=== PATIENT | female | born 1995 | race Caucasian/White ===

== ENCOUNTER 2016-09-08 17:53 | Emergency (ER) | payer BC ==
[2016-09-08 18:33] VITALS: BP 120/80
--- NOTE | 2016-09-08 20:24 | ED ---
Laceration/Wound HPI - HPI Summary HPI Summary: 21F presents with right foot laceration s/p stepping on sharp object today s/p walking bare foot in crow. She denies any foreign body in the wound. She has full ROM of her foot. She tetanus is up to date. bleeding is controlled upon arrival. pain is 8/10. - History of Current Complaint Stated Complaint: RIGHT FOOT LAC Time Seen by Provider: 09/08/16 18:25 Pain Intensity: 8 - Allergy/Home Medications Allergies/Adverse Reactions: Allergies Allergy/AdvReac Type Severity Reaction Status Date / Time No Known Allergies Allergy Verified 09/08/16 17:58 PMH/Surg Hx/FS Hx/Imm Hx Endocrine/Hematology History: Denies: Hx Anticoagulant Therapy Respiratory History: Denies: Hx Asthma Infectious Disease History: Denies: Traveled Outside the [place] in Last 30 Days - Family History Known Family History: Negative: Cardiac Disease - Social History Alcohol Use: Occasionally Substance Use Type: Reports: None Smoking Status (MU): Never Smoked Tobacco Review of Systems Negative: Fever Negative: Chest Pain Negative: Shortness Of Breath Positive: Other - laceration right foot All Other Systems Reviewed And Are Negative: Yes Physical Exam Triage Information Reviewed: Yes Vital Signs On Initial Exam: Initial Vitals Temp Pulse Resp BP Pulse Ox 98.1 F 85 18 113/72 99 09/08/16 17:56 09/08/16 17:56 09/08/16 17:56 09/08/16 17:56 09/08/16 17:56 Vital Signs Reviewed: Yes Appearance: Positive: Well-Appearing Skin: Positive: Warm, Dry, Other - 3cm laceration over middorum of foot Head/Face: Positive: Normal Head/Face Inspection Eyes: Positive: Normal, Conjunctiva Clear Respiratory/Lung Sounds: Positive: Clear to Auscultation, Breath Sounds Present Cardiovascular: Positive: Normal, RRR Procedures - Laceration/Wound Repair 1 Location: Other - right dorsum of foot Description: Linear Anesthesia: Local, 1.0% Length, Depth and Shape: 3cm Betadine Prep?: Yes Irrigated w/ Saline (ccs): 200 Laceration/Wound Explored: no foreign body removed Closure: Single Layer Suture Type: Prolene - 4-0 Number of Sutures: 4 Layer Closure?: No Sterile Dressing Applied?: No Diagnostics - Vital Signs Vital Signs Temp Pulse Resp BP Pulse Ox 09/08/16 18:27 99.7 F 75 16 120/80 99 09/08/16 17:56 98.1 F 85 18 113/72 99 - Laboratory Lab Statement: Any lab studies that have been ordered have been reviewed, and results considered in the medical decision making process. Laceration Repair Course/Dx - Course Course Of Treatment: 21F presents with right foot laceration s/p stepping on something on crow. denies any foreign body in wound. placed 4 sutures. tetanus up to date. patient understands and agrees with plan - Differential Dx Differental Diagnoses: Abrasion, Avulsion, Laceration - Clinical Impression Provider Diagnoses: Laceration of right foot Discharge - Discharge Plan Condition: Good Disposition: HOME Patient Education Materials: Care For Your Stitches (ED) Referrals: [facility] [Primary Care Provider] - Additional Instructions: Take Tylenol or ibuprofen for pain every 6 hours as needed Keep area clean and dry for 48 hours Do not soak area Return to ED or primary in 10-14 days to have sutures removed Return to ED if develop signs of infection such as fever, spreading redness, or pus.
== END 2016-09-08 20:32 | disposition home or self-care (01) ==
LOC: ED 17:53
DX: S91.311A Laceration without foreign body, right foot, initial encounter (principal); W45.8XXA Other foreign body or object entering through skin, initial encounter; Y93.9 Activity, unspecified; Y92.9 Unspecified place or not applicable; Y99.9 Unspecified external cause status
CPT/HCPCS: 12002; 99281